=== PATIENT | male | born 1960 | race Caucasian/White ===

== ENCOUNTER 2017-02-08 14:41 | Emergency (ER) | payer OTHER ==
[~2017-02-08] VITALS: Ht 175.3 cm; Wt 86.2 kg
[~2017-02-08 14:41] MED LIST: LORTA5 PO
[2017-02-08 14:46] VITALS: BP 150/90; PULSE 55; RESP 18; TEMP 97.9; O2SAT 99
[2017-02-08] MEDS ORDERED: KETOROLAC TROMETHAMINE 30 MG/ML (IVP) VIAL IVP ONE (15:00)
[2017-02-08] MEDS ORDERED: SODIUM CHLORIDE 0.9% FLUSH 10 ML FLUSH IV FLUSH PRN (15:00)
[2017-02-08] MEDS ORDERED: SODIUM CHLOR 0.9% 1000 ML INJ 1,000 ML IV ONE (15:00)
[2017-02-08 15:01] VITALS: O2SAT 98
--- NOTE | 2017-02-08 15:06 | PD ---
HPI Chief Complaint: Abdominal Pain Time Seen by Provider: 14:53 Travel History International Travel<30 days: No Contact w/Intl Traveler<30days: No Traveled to known affect area: No History of Present Illness HPI 56yo M presents to the ED with c/o left lower abdominal pain for 2-3 hours. States pain is now constant, nonradiating, and cramping. Denies any fever, chest pain, sob, n/v, testicular pain, penile discharge, dysuria, hematuria or trauma. Pt has no abdominal surgeries before and denies history of nephrolithiasis. PFSH Past Medical History Anxiety: No Depression: No Cancer: No Cardiovascular Problems: No Chemotherapy: No Diabetes: No Endocrine: No Genitourinary: No Hepatitis: No Hiatal Hernia: Yes Immune Disorder: No Musculoskeletal: No Neurologic: No Psychiatric: No Reproductive: No Respiratory: No Radiation Therapy: No Thyroid Disease: No Tetanus Vaccination: > 5 Years Influenza Vaccination: Yes Past Surgical History AICD: No Arteriovenous Shunt: No Body Medical Devices: DENTAL POSTS Insulin Pump: No Joint Replacement: No Pacemaker: No Other Surgery: Yes (ACDF OF NECK) Social History Alcohol Use: Yes (SOCIAL) Tobacco Use: No Substance Use: No Allergies-Medications (Allergen,Severity, Reaction): Coded Allergies: No Known Allergies (Unverified , 02/08/17) Reported Meds & Prescriptions Reported Meds & Active Scripts Active No Active Prescriptions or Reported Medications Review of Systems Except as stated in HPI: all other systems reviewed are Neg Physical Exam Narrative GENERAL: 56yo M in moderate distress. SKIN: Focused skin assessment warm/dry. HEAD: Atraumatic. Normocephalic. EYES: Pupils equal and round. No scleral icterus. No injection or drainage. ENT: No nasal bleeding or discharge. Mucous membranes pink and moist. NECK: Trachea midline. No JVD. CARDIOVASCULAR: Regular rate and rhythm. No murmur appreciated. RESPIRATORY: No accessory muscle use. Clear to auscultation. Breath sounds equal bilaterally. GASTROINTESTINAL: Abdomen soft, +TTP left flank, left LLQ. No rebound tenderness or guarding. : No testicular ttp. MUSCULOSKELETAL: No obvious deformities. No clubbing. No cyanosis. No edema. NEUROLOGICAL: Awake and alert. No obvious cranial nerve deficits. Motor grossly within normal limits. Normal speech. PSYCHIATRIC: Appropriate mood and affect; insight and judgment normal. Data Data Last Documented VS Vital Signs Date Time Temp Pulse Resp B/P Pulse Ox O2 Delivery O2 Flow Rate FiO2 02/08/17 15:01 98 Room Air 02/08/17 14:46 97.9 55 18 150/90 Orders Complete Blood Count With Diff (02/08/17 14:59) Comprehensive Metabolic Panel (02/08/17 14:59) Prothrombin Time / Inr (Pt) (02/08/17 14:59) Act Partial Throm Time (Ptt) (02/08/17 14:59) Urinalysis - C+S If Indicated (02/08/17 14:59) Ct Abd/Pel W Iv Contrast(Rout) (02/08/17 14:59) Iv Access Insert/Monitor (02/08/17 14:59) Ecg Monitoring (02/08/17 14:59) Oximetry (02/08/17 14:59) Sodium Chloride 0.9% Flush (Ns Flush) (02/08/17 15:00) Ketorolac Inj (Toradol Inj) (02/08/17 15:00) Sodium Chlor 0.9% 1000 Ml Inj (Ns 1000 M (02/08/17 15:00) Ondansetron Inj (Zofran Inj) (02/08/17 15:15) Iohexol 350 Inj (Omnipaque 350 Inj) (02/08/17 15:56) Morphine Inj (Morphine Inj) (02/08/17 16:15) Labs Laboratory Tests Test 02/08/17 02/08/17 14:48 16:25 White Blood Count 10.0 TH/MM3 Red Blood Count 4.94 MIL/MM3 Hemoglobin 15.0 GM/DL Hematocrit 45.0 % Mean Corpuscular Volume 91.1 FL Mean Corpuscular Hemoglobin 30.4 PG Mean Corpuscular Hemoglobin 33.4 % Concent Red Cell Distribution Width 12.6 % Platelet Count 208 TH/MM3 Mean Platelet Volume 9.5 FL Neutrophils (%) (Auto) 60.9 % Lymphocytes (%) (Auto) 26.2 % Monocytes (%) (Auto) 9.5 % Eosinophils (%) (Auto) 2.8 % Basophils (%) (Auto) 0.6 % Neutrophils # (Auto) 6.0 TH/MM3 Lymphocytes # (Auto) 2.6 TH/MM3 Monocytes # (Auto) 1.0 TH/MM3 Eosinophils # (Auto) 0.3 TH/MM3 Basophils # (Auto) 0.1 TH/MM3 CBC Comment DIFF FINAL Differential Comment Prothrombin Time 10.5 SEC Prothromb Time International 1.0 RATIO Ratio Activated Partial 25.7 SEC Thromboplast Time Sodium Level 141 MEQ/L Potassium Level 4.0 MEQ/L Chloride Level 105 MEQ/L Carbon Dioxide Level 29.8 MEQ/L Anion Gap 6 MEQ/L Blood Urea Nitrogen 16 MG/DL Creatinine 0.96 MG/DL Estimat Glomerular Filtration 82 ML/MIN Rate Random Glucose 98 MG/DL Calcium Level 8.7 MG/DL Total Bilirubin 0.5 MG/DL Aspartate Amino Transf 21 U/L (AST/SGOT) Alanine Aminotransferase 31 U/L (ALT/SGPT) Alkaline Phosphatase 62 U/L Total Protein 7.0 GM/DL Albumin 3.8 GM/DL Urine Collection Type CLEAN CATCH Urine Color YELLOW Urine Turbidity CLEAR Urine pH 5.5 Urine Specific [place] 1.015 Urine Protein NEG mg/dL Urine Glucose (UA) NEG mg/dL Urine Ketones 15 mg/dL Urine Occult Blood LARGE Urine Nitrite NEG Urine Bilirubin NEG Urine Leukocyte Esterase NEG Urine RBC 25-49 /hpf Urine Squamous Epithelial 0-5 /hpf Cells Microscopic Urinalysis Comment CULT NOT INDICATED Urine Collection Time 16:25 [facility] Medical Decision Making Medical Screen Exam Complete: Yes Emergency Medical Condition: Yes Interpretation(s) Laboratory Tests Test 02/08/17 02/08/17 14:48 16:25 White Blood Count 10.0 TH/MM3 (4.0-11.0) Red Blood Count 4.94 MIL/MM3 (4.50-5.90) Hemoglobin 15.0 GM/DL (13.0-17.0) Hematocrit 45.0 % (39.0-51.0) Mean Corpuscular Volume 91.1 FL (80.0-100.0) Mean Corpuscular Hemoglobin 30.4 PG (27.0-34.0) Mean Corpuscular Hemoglobin 33.4 % Concent (32.0-36.0) Red Cell Distribution Width 12.6 % (11.6-17.2) Platelet Count 208 TH/MM3 (150-450) Mean Platelet Volume 9.5 FL (7.0-11.0) Neutrophils (%) (Auto) 60.9 % (16.0-70.0) Lymphocytes (%) (Auto) 26.2 % (9.0-44.0) Monocytes (%) (Auto) 9.5 % (0.0-8.0) Eosinophils (%) (Auto) 2.8 % (0.0-4.0) Basophils (%) (Auto) 0.6 % (0.0-2.0) Neutrophils # (Auto) 6.0 TH/MM3 (1.8-7.7) Lymphocytes # (Auto) 2.6 TH/MM3 (1.0-4.8) Monocytes # (Auto) 1.0 TH/MM3 (0-0.9) Eosinophils # (Auto) 0.3 TH/MM3 (0-0.4) Basophils # (Auto) 0.1 TH/MM3 (0-0.2) CBC Comment DIFF FINAL Differential Comment Prothrombin Time 10.5 SEC (9.8-11.6) Prothromb Time International 1.0 RATIO Ratio Activated Partial 25.7 SEC Thromboplast Time (24.3-30.1) Sodium Level 141 MEQ/L (136-145) Potassium Level 4.0 MEQ/L (3.5-5.1) Chloride Level 105 MEQ/L (98-107) Carbon Dioxide Level 29.8 MEQ/L (21.0-32.0) Anion Gap 6 MEQ/L (5-15) Blood Urea Nitrogen 16 MG/DL (7-18) Creatinine 0.96 MG/DL (0.60-1.30) Estimat Glomerular Filtration 82 ML/MIN (>89) Rate Random Glucose 98 MG/DL (74-106) Calcium Level 8.7 MG/DL (8.5-10.1) Total Bilirubin 0.5 MG/DL (0.2-1.0) Aspartate Amino Transf 21 U/L (15-37) (AST/SGOT) Alanine Aminotransferase 31 U/L (12-78) (ALT/SGPT) Alkaline Phosphatase 62 U/L (45-117) Total Protein 7.0 GM/DL (6.4-8.2) Albumin 3.8 GM/DL (3.4-5.0) Urine Collection Type CLEAN CATCH Urine Color YELLOW (YELLW/STRAW) Urine Turbidity CLEAR (CLEAR) Urine pH 5.5 (5.0-8.5) Urine Specific [place] 1.015 (1.002-1.035) Urine Protein NEG mg/dL (NEG-TRACE) Urine Glucose (UA) NEG mg/dL (NEG) Urine Ketones 15 mg/dL (NEG) Urine Occult Blood LARGE (NEG) Urine Nitrite NEG (NEG) Urine Bilirubin NEG (NEG) Urine Leukocyte Esterase NEG (NEG) Urine RBC 25-49 /hpf (0-3) Urine Squamous Epithelial 0-5 /hpf (0-5) Cells Microscopic Urinalysis Comment CULT NOT INDICATED Urine Collection Time 16:25 Last Impressions Abdomen/Pelvis CT 02/08/17 0129 Signed Impressions: Service Date/Time: Wednesday, February 08, 2017 15:43 - CONCLUSION: Significant thecal sac stenosis at L3-4 due to large osteophyte formation and degenerative changes, otherwise unremarkable. Carlton Leigh MD Differential Diagnosis Nephrolithiasis vs. diverticulitis Narrative Course 56yo M with left sided abdominal pain. Labs reviewed, no leukocytosis. CMP unremarkable. CT a/p showed significant degenerative disc disease at L3-4 and L4-5 with significant thecal sac stenosis at L3-4 due to huge osteophyte formation. 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 Bilateral lower extremity sensation and muscle strength intact. Pt has orthopedic surgeon to follow up with. Informed pt of results. Liver, spleen, pancreas, kidneys and adrenals are unremarkable. Pt given toradol which helped relieved pain but it returned so pt was then given morphine. Labs reviewed, no leukocytosis. CMP unremarkable. Creatinine normal. UA showed large blood. Pt likely had a kidney stone that passed. Pt reevaluated after morphine and pain has resolved. Abdomen is soft, NT/ND. Pt tolerating PO. Return precautions given. Diagnosis Primary Impression: Abdominal pain Qualified Code: R10.32 - Left lower quadrant pain Patient Instructions: General Instructions Departure Forms: Tests/Procedures Additional Instructions: Please follow up with your PMD in 3-7 days. Please follow up with your orthopedic surgeon. Return to the ED if symptoms worsen. Med/Other Pt SpecificInfo: Prescription(s) given Scripts Acetaminophen (Acetaminophen Extra Strength)500 Mg [id number] Mg PO Q6H PRN (PAIN SCALE 1 TO 4) #20 TAB Ref 0 Prov:Tammy Acevedo DO 02/08/17 Disposition: 01 DISCHARGE HOME Condition: Stable Tammy Acevedo DO Feb 08, 2017 15:06
[2017-02-08 15:14] LABS: BASOPHIL # 0.1 TH/MM3 (0-0.2); BASOPHIL % 0.6 % (0.0-2.0); EOSINOPHIL # 0.3 TH/MM3 (0-0.4); EOSINOPHIL % 2.8 % (0.0-4.0); HEMO FLAGS DIFF FINAL; LYMPH % 26.2 % (9.0-44.0); LYMPHOCYTE # 2.6 TH/MM3 (1.0-4.8); MEAN CELL VOLUME 91.1 FL (80.0-100.0); MEAN CORPUSCULAR HEMOGLOBIN 30.4 PG (27.0-34.0); MEAN CORPUSCULAR HGB CONC 33.4 % (32.0-36.0); MONO % 9.5 % (0.0-8.0); NEUT % 60.9 % (16.0-70.0); PLATELET COUNT 208 TH/MM3 (150-450); RED BLOOD COUNT 4.94 MIL/MM3 (4.50-5.90); RED CELL DISTRIBUTION WIDTH 12.6 % (11.6-17.2)
[2017-02-08] MEDS ORDERED: ONDANSETRON HCL 4 MG/2 ML VIAL IV PUSH ONE (15:15)
[2017-02-08 15:23] LABS: CHLORIDE 105 MEQ/L (98-107); SODIUM (NA) 141 MEQ/L (136-145)
[2017-02-08 15:26] LABS: ANION GAP 6 MEQ/L (5-15); BICARBONATE 29.8 MEQ/L (21.0-32.0)
[2017-02-08 15:27] LABS: BLOOD UREA NITROGEN 16 MG/DL (7-18)
[2017-02-08 15:28] LABS: APTT (PATIENT) 25.7 SEC (24.3-30.1); PROTHROMBIN TIME - PATIENT 10.5 SEC (9.8-11.6)
[2017-02-08 15:29] LABS: ALT (GPT) 31 U/L (12-78); AST (GOT) 21 U/L (15-37)
[2017-02-08 15:30] LABS: GLOMERULAR FILTRATION RATE 82 ML/MIN (>89)
[2017-02-08 15:31] LABS: TOTAL BILIRUBIN ADULT 0.5 MG/DL (0.2-1.0)
[2017-02-08 15:32] LABS: ALKALINE PHOSPHATASE 62 U/L (45-117)
[2017-02-08] MEDS ORDERED: IOHEXOL 350 MG/ML 10 ML VIAL (for RAD DIAG) IV ONE (15:56)
--- NOTE | 2017-02-08 16:05 | RADHPO ---
EXAM DATE/TIME: 02/08/2017 15:43 [facility] COMPARISON: No previous studies available for comparison. INDICATIONS : Left lower quadrant pain x 2 hours. IV CONTRAST: 85 cc Omnipaque 350 (iohexol) IV ORAL CONTRAST: No oral contrast ingested. RADIATION DOSE: 10.73 CTDIvol (mGy) MEDICAL HISTORY : Hernia, hiatal. SURGICAL HISTORY : None. ENCOUNTER: Initial ACUITY: 1 day PAIN SCALE: 7/10 LOCATION: Left lower quadrant TECHNIQUE: Volumetric scanning of the abdomen and pelvis was performed. Using automated exposure control and adjustment of the mA and/or kV according to patient size, radiation dose was kept as low as reasonably achievable to obtain optimal diagnostic quality images. FINDINGS: CT Abdomen: The liver, spleen, pancreas, kidneys, adrenals are unremarkable. There is no evidence for any appreciable pathological adenopathy, free fluid, or bowel obstruction. CT pelvis: There is no evidence for mass, abscess formation, or any significant adenopathy within the pelvis. The prostate gland is inhomogeneous and measures 3.4 x 4.1 cm in AP and transverse diameters and nonspecific. Significant degenerative disc disease is present at L3-4 and L4-5 levels with signi ficant thecal sac stenosis at L3-4 due to huge osteophyte formation. CONCLUSION: Significant thecal sac stenosis at L3-4 due to large osteophyte formation and degener ative changes, otherwise unremarkable. Carlton Legih MD on February 08, 2017 at 15:57 Board Certified Radiologist. This report was verified electronically.
[2017-02-08] MEDS ORDERED: MORPHINE SULFATE 8 MG/ML INJ IV PUSH ONE (16:15)
[2017-02-08 16:33] LABS: BLOOD, URINE LARGE (NEG); GLUCOSE,URINE NEG (NEG); KETONE, URINE 15 mg/dL (NEG); NITRITE,URINE NEG (NEG); PH, URINE 5.5 (5.0-8.5)
[2017-02-08 16:41] LABS: METHOD OF COLLECTION CLEAN CATCH; URINE COLOR YELLOW (YELLW/STRAW)
[2017-02-08 16:42] LABS: COMMENT (UR) CULT NOT INDICATED; CULTURE IF INDICATED CULT NOT INDICATED; SQUAMOUS EPITHELIAL CELL URINE 0-5 /hpf (0-5)
[2017-02-08 17:08] VITALS: BP 137/71; PULSE 74; RESP 16; O2SAT 99
[2017-02-08] MEDS ORDERED: ACET500T36 PO (17:10)
== END 2017-02-08 17:33 | disposition home or self-care (01) ==
LOC: PHED 14:41
DX: R10.32 Left lower quadrant pain (principal); Z87.39 Personal history of other diseases of the musculoskeletal system and connective tissue
CPT/HCPCS: 74177; 80053; 81001; 85025; 85610; 85730; 96361; 96374; 96375; 99284; J1885; J2270; J2405; J7030; Q9967